=== PATIENT | female | born 1955 | race Two or more races ===

== ENCOUNTER 2018-09-13 06:24 | Outpatient (CLI) | payer OTHER | END 2018-09-13 07:09 | disposition home or self-care (01) | LOC: LAB 06:24 | DX: E03.8 Other specified hypothyroidism (principal); I10 Essential (primary) hypertension; E11.9 Type 2 diabetes mellitus without complications; E78.2 Mixed hyperlipidemia; E55.9 Vitamin D deficiency, unspecified; D64.89 Other specified anemias; M10.9 Gout, unspecified ==

== ENCOUNTER 2018-09-13 07:18 | Outpatient (CLI) | payer OTHER | END 2018-09-13 07:24 | disposition home or self-care (01) | LOC: TOM 07:18 | DX: I71.4 Abdominal aortic aneurysm, without rupture (principal) ==

== ENCOUNTER 2021-05-18 08:16 | Outpatient (CLI) | payer OTHER | END 2021-05-18 10:25 | disposition home or self-care (01) | LOC: RAD 08:16 | PROVIDERS: ATTEND Internal Medicine | DX: M25.512 Pain in left shoulder (principal); G43.919 Migraine, unspecified, intractable, without status migrainosus; R43.2 Parageusia | CPT/HCPCS: 70551 ==

== ENCOUNTER 2022-01-23 07:28 | Outpatient (CLI) | payer OTHER | END 2022-01-23 07:35 | disposition home or self-care (01) | LOC: SONOGRAMA 07:28 | PROVIDERS: ATTEND Internal Medicine | DX: E04.8 Other specified nontoxic goiter (principal) ==

== ENCOUNTER 2023-02-08 07:36 | Outpatient (CLI) | payer OTHER | END 2023-02-08 07:45 | disposition home or self-care (01) | LOC: SONOGRAMA 07:36 | PROVIDERS: ATTEND Internal Medicine | DX: D35.00 Benign neoplasm of unspecified adrenal gland (principal); E27.9 Disorder of adrenal gland, unspecified ==